=== PATIENT | female | born 1980 | race Caucasian/White ===

== ENCOUNTER 2017-03-23 21:21 | Inpatient (IN) | payer BC ==
[~2017-03-23] VITALS: Ht 165.1 cm; Wt 79.4 kg
[2017-03-23] MEDS ORDERED: ONDA4TAB8 PO (21:37)
[2017-03-23] MEDS ORDERED: LOPE1TAB46 PO (21:37)
[2017-03-23] MEDS ORDERED: CIPROFLOXACIN HCL 500 MG TAB PO (21:37)
--- NOTE | 2017-03-23 21:40 | NUR ---
PATIENT WALKED INTO ER C/O WEAKNESS, "FEEL FAINT", WITH BLURRED VISON. STATES HAS BEEN HAVING DIARRHEA X4 DAYS. HERE FOR SYMPTOMS NOT RESOLVING
[2017-03-23] MEDS ORDERED: IV NORMAL SALINE 1000 ML BAG IV ONE (22:00)
[2017-03-23 22:23] LABS: BASOPHILS # (AUTO) 0.1 K/uL (0.0-8.0); BASOPHILS % (AUTO) 0.8 % (0.0-2.0); EOSINOPHILS # (AUTO) 0.4 K/uL (0.0-0.7); EOSINOPHILS % (AUTO) 5.4 % (0.0-7.0); LYMPHOCYTES % (AUTO) 47.5 % (20.5-51.5); MEAN CORPUSCULAR HEMOGLOBIN 28.4 UUG (27.0-31.0); MEAN CORPUSCULAR HGB CONC 34 g/dL (32.0-37.0); MONOCYTES # (AUTO) 0.5 K/UL (0.1-1.30); MONOCYTES % (AUTO) 7.1 % (0.0-11.0); NEUTROPHILS # (AUTO) 2.6 K/UL (1.8-8.9); NEUTROPHILS % (AUTO) 39.2 % (38.5-71.5); PLATELET COUNT (AUTO) 300 K/UL (150-450); RED BLOOD CELL COUNT(AUTO) 4.94 MIL/UL (4.2-5.4); WHITE BLOOD COUNT (AUTO) 6.6 K/UL (4.0-11.2)
[2017-03-23 22:26] LABS: CREATININE 0.9 mg/dL (0.6-1.3)
[2017-03-23 22:32] LABS: BILIRUBIN,DIRECT 0.1 mg/dL (0.0-0.2); BILIRUBIN,TOTAL 0.4 mg/dL (0.2-1.0); TOTAL PROTEIN, SERUM 7.6 g/dL (6.4-8.2)
[2017-03-23 22:34] LABS: POTASSIUM 2.8 mmol/L (3.5-5.1)
[2017-03-23] MEDS ORDERED: POTASSIUM BICARBONATE/CIT AC 25 MEQ TABLET.EFF PO ONE (22:45)
[2017-03-23] MEDS ORDERED: POTASSIUM CHLORIDE 50 ML IV SCH (22:45)
--- NOTE | 2017-03-23 22:50 | NUR ---
PATIENT STATING "I FEEL BETTER. I DON'T FEEL WEEK ANYMORE."
[2017-03-23] MEDS ORDERED: POTASSIUM BICARBONATE/CIT AC 25 MEQ TABLET.EFF ONE (22:54)
--- NOTE | 2017-03-24 00:25 | NUR ---
PATIENT DIARRHEA UNRESOLVED. PATIENT HAD X3 DIARRHEA EPISODE
--- NOTE | 2017-03-24 00:31 | NUR ---
PAGED EPPIC PANEL FOR ADMISSION OF PATIENT. WAITING FOR DR LANG TO CALL BACK
[2017-03-24] MEDS ORDERED: IV NS 1000 ML 1,000 ML IV PRN ×2 (01:11→11:33)
[2017-03-24] MEDS ORDERED: ONDANSETRON 4 MG/2 ML VIAL IV PRN (01:15)
[2017-03-24] MEDS ORDERED: ACETAMINOPHEN 325 MG TABLET PO PRN (01:15)
[2017-03-24] MEDS ORDERED: Z GUARD REMEDY PASTE 57 GM TUBE TOP PRN (01:15)
[2017-03-24] MEDS ORDERED: HYDROCODONE/APAP 5-325MG TABLET PO PRN (01:15)
[2017-03-24] MEDS ORDERED: LOPERAMIDE HCL 1 MG/5 ML UDC PO PRN (01:15)
[2017-03-24] MEDS ORDERED: MAGNESIUM HYDROXIDE 30 ML LIQUID UDC PO PRN (01:15)
--- NOTE | 2017-03-24 01:28 | NUR ---
TRANSFERED TO 2ND FLOOR TELE VIA WHEELCHAIR
--- NOTE | 2017-03-24 01:40 | NUR ---
PT RECEIVED FROM ED VIA [place]. ORIENTED TO ROOM. A/OX4. ABLE TO MAKE NEEDS KNOWN. V/S STABLE. IN NO ACUTE DISTRESS. NO C/O PAIN AT THIS TIME. 61 SINUS RHYTHM ON THE TELE MONITOR. IVF INFUSING. ON RA, TOLERATING WELL. SAFETY MEASURES IMPLEMENTED. CALL LIGHT WITHIN REACH. WILL CONT TO MONITOR.
[2017-03-24 02:09] VITALS: BP 90/58
[2017-03-24 04:45] VITALS: BP 95/56
--- NOTE | 2017-03-24 06:10 | NUR ---
END OF SHIFT NOTES. PT SLEPT WELL THROUGHOUT SHIFT. IN STABLE CONDITION. IVF INFUSING. SINUS 60 ON THE TELE MONITOR. ALL NEEDS ATTENDED. CALL LIGHT WITHIN REACH.
[2017-03-24 08:40] LABS: CREATININE 0.7 mg/dL (0.6-1.3); MAGNESIUM 1.9 mg/dL (1.8-2.4); POTASSIUM 3.5 mmol/L (3.5-5.1)
--- NOTE | 2017-03-24 08:40 | NUR ---
PT AWAKE IN BED, JUST FINISHING UP BREAKFAST, TOLERATING WELL, NO NAUSEA OR VOMITING PRESENT, CONTINUING TO HAVE BOWEL MOVEMENTS EVERY TIME PT USES RESTROOM. CALL LIGHT IN REACH, WILL CONTINUE OT MONITOR
[2017-03-24] MEDS ORDERED: SIMETHICONE PO SCH (09:00)
[2017-03-24] MEDS ORDERED: LOPERAMIDE HCL PO SCH (09:00)
[2017-03-24] MEDS ORDERED: [UNRECOGNIZED DRUG - OTHER] PO SCH (09:00)
[2017-03-24 11:18] VITALS: BP 100/54
[2017-03-24] MEDS ORDERED: POTASSIUM CHLORIDE 20 MEQ TAB.PRT.SR PO ONE (11:30)
[2017-03-24 11:42] LABS: BILIRUBIN,DIRECT 0.1 mg/dL (0.0-0.2); BILIRUBIN,TOTAL 0.3 mg/dL (0.2-1.0); TOTAL PROTEIN, SERUM 6.1 g/dL (6.4-8.2)
[2017-03-24] MEDS ORDERED: LOPE1LIQ PO (13:58)
[2017-03-24] MEDS ORDERED: ACID1TAB4 PO (13:58)
--- NOTE | 2017-03-24 14:30 | NUR ---
DISCHARGE NOTED. EDUCATION PROVIDED. PT VERBALIZED UNDERSTANDING. IV REMOVED WITH NO REDNESS OR IRRITATION NOTED. ID BAND REMOVED ALL BELONGINGS ACCOUNTED FOR AND SENT WITH PATIENT, PT TAKEN DOWN VIA WHEELCHAIR AND LEFT IN PRIVATE CAR WITH
[2017-03-24] MEDS ORDERED: ACIDOPHILUS/BULGARICUS CHEW TAB PO SCH (21:00)
[2017-03-25 07:06] LABS: HEPATITIS A AB, IgM Negative (Negative); HEPATITIS A AB, TOTAL Positive (Negative); HEPATITIS B SURFACE AB Reactive (.); HEPATITIS B SURFACE AG Negative (Negative)
[2017-03-26 23:25] LABS: HEPATITIS Be ANTIGEN Negative (Negative)
== END 2017-03-24 14:30 | disposition home or self-care (01) | DRG 392 ==
LOC: ER 21:22 → TELE 03-24 01:10
PROVIDERS: ADMIT Internal Medicine; ATTEND Internal Medicine
DX: A08.4 Viral intestinal infection, unspecified (principal); E66.9 Obesity, unspecified; E87.6 Hypokalemia; R74.0 Nonspecific elevation of levels of transaminase and lactic acid dehydrogenase [LDH]; Z68.29 Body mass index [BMI] 29.0-29.9, adult
CPT/HCPCS: 36415; 83690; 83735; 84703; 85025; 86625; 86704; 86705; 86706; 86708; 86709; 86803; 87046; 87340; 87350; 89055; 93005; A4663; J7030

== ENCOUNTER 2018-11-09 12:21 | Emergency (ER) | payer BC ==
[~2018-11-09] VITALS: Ht 165.1 cm; Wt 85.3 kg
[~2018-11-09 12:21] MED LIST: ACID1TAB4 PO; LOPE1LIQ PO
--- NOTE | 2018-11-09 12:28 | NUR ---
PT IS IN ROOM #2A. DR ZELAYA EVALUATED THE PT.
[2018-11-09 13:03] LABS: BASOPHILS % (AUTO) 0.6 % (0.0-2.0); EOSINOPHILS # (AUTO) 0.2 K/uL (0.0-0.7); EOSINOPHILS % (AUTO) 3.2 % (0.0-7.0); HEMATOCRIT 37.6 % (31.2-41.9); HEMOGLOBIN 12.8 g/dL (10.9-14.3); LYMPHOCYTES # (AUTO) 2.5 K/uL (20.0-40.0); LYMPHOCYTES % (AUTO) 44.7 % (20.5-51.5); MEAN CORPUSCULAR HEMOGLOBIN 28.2 uug (24.7-32.8); MEAN CORPUSCULAR HGB CONC 34 g/dL (32.3-35.6); MEAN CORPUSCULAR VOLUME 82.7 fL (75.5-95.3); MONOCYTES # (AUTO) 0.4 K/uL (2.0-10.0); MONOCYTES % (AUTO) 7.9 % (0.0-11.0); NEUTROPHILS # (AUTO) 2.4 K/uL (1.8-8.9); NEUTROPHILS % (AUTO) 43.6 % (38.5-71.5); PLATELET COUNT (AUTO) 257 K/uL (179-408); RED BLOOD CELL COUNT(AUTO) 4.55 MIL/uL (3.63-4.92); WHITE BLOOD COUNT (AUTO) 5.5 K/uL (3.8-11.8)
[2018-11-09 13:08] LABS: CREATININE 0.9 mg/dL (0.6-1.3); POTASSIUM 3.4 mmol/L (3.5-5.1)
[2018-11-09] MEDS ORDERED: ONDANSETRON 4 MG/2 ML VIAL ONE (13:10)
[2018-11-09] MEDS ORDERED: HYDROMORPHONE 1 MG/1 ML DISP.SYRIN ONE (13:10)
[2018-11-09] MEDS: ONDANSETRON 4 MG/2 ML VIAL IV ONE (13:12)
[2018-11-09] MEDS: IV NORMAL SALINE 1000 ML BAG IV ONE (13:12)
[2018-11-09] MEDS: HYDROMORPHONE 1 MG/1 ML DISP.SYRIN IV ONE (13:12)
[2018-11-09 13:14] LABS: BILIRUBIN,DIRECT 0.1 mg/dL (0.0-0.2); BILIRUBIN,TOTAL 0.7 mg/dL (0.2-1.0); TOTAL PROTEIN, SERUM 7.2 g/dL (6.4-8.2)
[2018-11-09] MEDS: POTASSIUM CHLORIDE 20 MEQ TAB.PRT.SR PO ONE (13:48)
[2018-11-09] MEDS ORDERED: POTASSIUM CHLORIDE 20 MEQ TAB.PRT.SR ONE (13:53)
[2018-11-09 14:35] LABS: *BILIRUBIN,URIN NEGATIVE (NEGATIVE); *BLOOD, URINE NEGATIVE (NEGATIVE); *CLARITY,URINE CLEAR (CLEAR); *COLOR,URINE LIGHT YELLOW (YELLOW); *KETONES,URINE NEGATIVE (NEGATIVE); *URINE HCG, QUAL NEGATIVE (NEGATIVE); *UROBILINOGEN,URINE 0.2 E.U./dl (NORMAL); LEUKOCYTE ESTERASE ,URINE NEGATIVE (NEGATIVE); NITRITE, URINE NEGATIVE (NEGATIVE); UGLUCOSE NEGATIVE (NEGATIVE)
--- NOTE | 2018-11-09 15:19 | NUR ---
PT WAS D/C'd TO HOME. D/C INSTRUCTIONS GIVEN TO THE PT.
[2018-11-09 15:20] VITALS: BP 129/71
== END 2018-11-09 15:20 | disposition home or self-care (01) ==
LOC: ER 12:21
DX: R19.7 Diarrhea, unspecified (principal); R42 Dizziness and giddiness; Z88.8 Allergy status to other drugs, medicaments and biological substances; Z79.899 Other long term (current) drug therapy; Z90.49 Acquired absence of other specified parts of digestive tract
CPT/HCPCS: 36415; 80048; 80076; 81001; 83690; 84703; 85025; 96361; 96374; 96375; 99283; J1170; J2405; A4663; J7030